=== PATIENT | female | born 1990 | race Caucasian/White ===

== ENCOUNTER → 2018-11-27 13:37 | Outpatient (CLI) | payer OTHER, SELFPAY ==
[2016-09-23 02:01] VITALS: BMI 29.3
[2018-11-27 20:26] LABS: Chlamydia Trachomatis by PCR Negative (Negative); Neisserai gonorrhoeae by PCR Negative (Negative); Probe Check PASS; Sample Adequacy Control PASS; Specimen Processing Control PASS
[2018-12-04 08:22] LABS: HPV Reflexed? NOT INDICATED
== END ==
PROVIDERS: Family Provider Family Medicine; PCP Family Medicine; Visit Provider Obstetrics & Gynecology
DX: Z32.01 Encounter for pregnancy test, result positive (principal)
CPT/HCPCS: 87491; 87591; 87624; 88175; G0145

== ENCOUNTER → 2018-12-25 16:34 | Outpatient (CLI) | payer OTHER, SELFPAY ==
[2016-09-23 02:01] VITALS: BMI 29.3
[2018-12-25 17:15] LABS: Absolute Lymphocyte Count 1.35 X10^3/uL (0.83-4.51); Absolute Neutrophil Count 6.3 X10^3/uL (2.0-7.7); Basophil# 0.02 X10^3/uL; Basophil% 0.2 % (0-1); Eosinophil# 0.05 X10^3/uL; Eosinophils% 0.6 % (0-5); Hematocrit 37.9 % (37-47); Hemoglobin 13.1 g/dL (12.0-15.0); Lymphocyte # 1.35 X10^3/ul (4.0); Lymphocyte % 16.4 % (19-41); Mean Corp Hgb Conc 34.6 g/dL (32-36); Mean Corpuscular Hgb 30.8 pg (27.0-32.0); Mean Corpuscular Volume 89.2 fL (81-99); Mean Platelet Vol. 10.5 fl (6.2-12.0); Monocyte# 0.47 X10^3/uL; Monocyte% 5.7 % (0-10); NRBC Flagged by Analyzer 0 % (0-5); Neutrophil # 6.29 X10^3/uL (2.7-7.7); Neutrophil % 76.7 % (47-70); Platelet Count 167 K/mm3 (150-450); RBC Distribution Width CV 12.5 % (11.6-14.6); RBC Distribution Width SD 40.7 fl (35.1-43.9); Red Blood Count 4.25 M/mm3 (4.2-5.4); White Blood Count 8.2 K/mm3 (4.4-11.0)
[2018-12-25 17:33] LABS: Color, Urine Yellow (Yellow); Glucose, Dipstick Normal (Normal); Ketone-Dipstick 5 mg/dl (Negative); Leukocyte Esterase-Dipstick 500 /ul (Negative); Nitrite-Dipstick Negative (Negative); Occult Blood-Urine 25 /ul (Negative); Protein-Dipstick 15 mg/dl (Negative); Urine Bilirubin Dipstick Negative (Negative); Urine Clarity Turbid (Clear); Urine Urobilinogen Normal (Normal)
[2018-12-25 17:56] LABS: Amphetamine Urine VISTA NEGATIVE (<1000 ng/mL); Barbiturate Urine VISTA NEGATIVE (< 200 ng/mL); Benzodiazepine Urine VISTA NEGATIVE (< 200 ng/mL); Cocaine Urine VISTA NEGATIVE (< 300 ng/mL); Ecstacy Urine VISTA NEGATIVE (< 500 ng/mL); Methadone Urine VISTA NEGATIVE (< 300 ng/mL); PCP Urine VISTA NEGATIVE (< 25 ng/mL); THC Urine VISTA NEGATIVE (< 50 ng/mL); Vista UDS pH Range 6
[2018-12-25 18:17] LABS: Thyroid Stim Hormone (TSH) 1.71 uIU/mL (0.358-3.74)
[2018-12-26 00:54] LABS: Prenatal RPR NONREACTIVE (NONREACTIVE)
[2018-12-26 09:18] LABS: HIV - WCH Non-Reactive (Nonreactive); Hepatitis B Surface Antigen Non-Reactive (Nonreactive); Hepatitis C Antibody Non-Reactive (Nonreactive); Rubella IgG 75.7 IU/mL; Vitamin D,25 Hydroxy 29.5 ng/mL (29.95-100.01)
== END ==
PROVIDERS: Visit Provider Obstetrics & Gynecology
DX: Z34.81 Encounter for supervision of other normal pregnancy, first trimester (principal)
CPT/HCPCS: 36415; 80307; 81002; 82306; 84443; 85025; 86703; 86762; 86803; 87340

== ENCOUNTER → 2019-04-15 15:37 | Outpatient (CLI) | payer OTHER, SELFPAY ==
[2016-09-23 02:01] VITALS: BMI 29.3
[2019-04-15 17:38] LABS: Hematocrit 31.8 % (37-47); Hemoglobin 10.9 g/dL (12.0-15.0); Mean Corp Hgb Conc 34.3 g/dL (32-36); Mean Corpuscular Hgb 31.4 pg (27.0-32.0); Mean Corpuscular Volume 91.6 fL (81-99); Mean Platelet Vol. 11.5 fl (6.2-12.0); Platelet Count 145 K/mm3 (150-450); RBC Distribution Width CV 13.3 % (11.6-14.6); RBC Distribution Width SD 43.7 fl (35.1-43.9); Red Blood Count 3.47 M/mm3 (4.2-5.4)
[2019-04-15 17:58] LABS: Glucose Challenge Gest 1H 50g 84 mg/dL (70-140)
[2019-04-15 18:05] LABS: Vitamin D,25 Hydroxy 34.7 ng/mL (29.95-100.01)
[2019-04-16 23:49] LABS: Ferritin 6 ng/mL (8-252)
== END ==
PROVIDERS: Visit Provider Obstetrics & Gynecology
DX: O99.282 Endocrine, nutritional and metabolic diseases complicating pregnancy, second trimester (principal); E55.9 Vitamin D deficiency, unspecified; Z3A.00 Weeks of gestation of pregnancy not specified
CPT/HCPCS: 36415; 82306; 82728; 82950; 85027

== ENCOUNTER → 2019-06-10 15:41 | Outpatient (CLI) | payer OTHER, SELFPAY ==
[2016-09-23 02:01] VITALS: BMI 29.3
[2019-06-10 17:13] LABS: Hematocrit 35.7 % (37-47); Hemoglobin 12.3 g/dL (12.0-15.0); Mean Corp Hgb Conc 34.5 g/dL (32-36); Mean Corpuscular Hgb 31.3 pg (27.0-32.0); Mean Corpuscular Volume 90.8 fL (81-99); Mean Platelet Vol. 11.3 fl (6.2-12.0); Platelet Count 138 K/mm3 (150-450); RBC Distribution Width CV 13.7 % (11.6-14.6); RBC Distribution Width SD 45.6 fl (35.1-43.9); Red Blood Count 3.93 M/mm3 (4.2-5.4)
[2019-06-10 17:24] LABS: AST(SGOT) 12 U/L (15-37); Alanine Aminotransfer ALT/SGPT 14 U/L (13-56); Albumin, Serum 2.7 g/dL (3.2-5.0); Alkaline Phosphatase 102 U/L (45-117); Bilirubin, Direct 0.07 mg/dL (0.00-0.30); Protein, Total 6.7 g/dL (6.4-8.2)
== END ==
PROVIDERS: Visit Provider Obstetrics & Gynecology
DX: Z34.83 Encounter for supervision of other normal pregnancy, third trimester (principal); D69.6 Thrombocytopenia, unspecified; L29.9 Pruritus, unspecified
CPT/HCPCS: 36415; 80076; 85027

== ENCOUNTER → 2019-06-17 | Outpatient (CLI) | payer OTHER, SELFPAY | END | disposition home or self-care (01) | PROVIDERS: PCP Family Medicine; Visit Provider Obstetrics & Gynecology | DX: Z36.85 Encounter for antenatal screening for Streptococcus B (principal) | CPT/HCPCS: 87081 ==

== ENCOUNTER 2019-07-03 00:45 | Inpatient (IN) | payer OTHER, SELFPAY ==
[2016-09-23 02:01] VITALS: BMI 29.3
[2019-07-03] VITALS (41 sets, daily range): BP systolic 101–143; BP diastolic 61–87; PULSE 66–130; RESP 16; TEMP 36.7–37.3; O2SAT 92–100; BMI 28.0
[2019-07-03] MEDS: 0.9% Saline Lock 10 ML Syringe IV ×2 (01:10→19:33)
[2019-07-03 01:28] LABS: Absolute Lymphocyte Count 1.29 X10^3/uL (0.83-4.51); Basophil# 0.02 X10^3/uL; Basophil% 0.3 % (0-1); Eosinophil# 0.05 X10^3/uL; Eosinophils% 0.6 % (0-5); Hematocrit 36.4 % (37-47); Hemoglobin 12.4 g/dL (12.0-15.0); Lymphocyte # 1.29 X10^3/ul (4.0); Lymphocyte % 16.3 % (19-41); Mean Corp Hgb Conc 34.1 g/dL (32-36); Mean Platelet Vol. 11.6 fl (6.2-12.0); Monocyte# 0.57 X10^3/uL; Monocyte% 7.2 % (0-10); NRBC Flagged by Analyzer 0 % (0-5); Neutrophil # 5.98 X10^3/uL (2.7-7.7); Neutrophil % 75.3 % (47-70); Platelet Count 135 K/mm3 (150-450); RBC Distribution Width CV 13.6 % (11.6-14.6); RBC Distribution Width SD 44.6 fl (35.1-43.9); White Blood Count 7.9 K/mm3 (4.4-11.0)
--- NOTE | 2019-07-03 08:05 | PCM.HP.BLA ---
History and Physical Date of Admission: 07/03/19 [facility] [place] ANTEPARTUM RECORD - HISTORY AND PHYSICAL (07/03/2019) Name: MARGARITA HUGO History of This : This is a 29-year-old 2 para 1 who presents with spontaneous rupture of membranes at home. care has been remarkable for low vitamin D, scoliosis, thrombocytopenia. OB Physician: LOR 's Physician: Charly Colbert MD ...................................................................... : 1990 Age: 29 Address: [place] [address] Phone: ([phone] Insurance Carrier: [facility] [id number] Emergency Contact: LUC HUGO [phone] ...................................................................... Final DANILO: 07/11/19 By Ultrasound: 9 weeks 1 day PARITY: (G-Total Pregnancies P-Fullterm,Premature,Induced AB,Spont AB, Ectopics, Multiple,Living) DANILO CONFIRMATION: By LMP: 10/04/18 Initial Exam: 07/11/19 By First Ultrasound Exam: 07/11/19 Final DANILO: 07/11/19 OB PROBLEM LIST: ALLERGIC TO LATEX AND INJECTABLE CORTISONE. 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 Drug Use - denies use of street drugs Sexual Activity - Residence - owns a home Place of - [place], [place] Spouse-Sig Other Name - [employer]ms Hugo Spouse-Sig Other Occupation - [employer]- maintenance and operations supervisor Spouse-Sig Other Phone No - [phone] Children Name(s) - Darren '17 PRIOR DELIVERY HISTORY DEL DATE GEST LAB WT LB WT OZ TYPE ANES LABOR TX 28 September 12 40 30 8 7 Vag/V Epidural No ANTEPARTUM FLOW CHART VISIT GE RTC FU F F WI U U DATE WK MD WKS HT PN HR M SS BP ED WT WI GL D EF ST __ ____ ___ __ __ ___ __ __ __ ___ __ __ __ ___ __ 03 Jun 38 SHM 1 37 V + + 110/74 0 188 tr - May 37 SHM 1 36 V + + 108/70 1+ 188 tr - May 36 SHM 1 36 V + + 110/70 sl 185 tr ne May 35 SHM 2 34 V + + 100/64 0 184 tr - Apr KW 2 32 + + 116/66 0 182 ne ne May 28 SHM 2 30 ? + + 110/62 sl 179 tr - Apr 24 SHM 2 27 ? + 110/68 0 177 - - Mar 21 SHM 4 23 + + 108/76 0 170 tr - Feb 14 SHM 4 20 + + 116/78 - 164 - - Jan 11 SHM 4 + ? 112/72 0 160 tr - Dec 07 SHM 4 on O 118/72 0 158 - - ANTEPARTUM NOTE(S): Jun 30 2019: Jun 23 2020: see note Jun 17 2019: gbs today. LARC signed Jun 10 2019: doing well May 27 2019: Feeling well May 08 2020: see note Apr 15 2019: none Mar 17 2019: doing well, glucola inst provided and reviewed Feb 16 2019: doing well, comp u/s today Jan 19 2019: see prog note, declines AFP Dec 25 2018: US and NOB today COMPREHENSIVE ANTEPARTUM NOTE(S): Jun 30 2019: Margarita is here, concerned with decreased FM. NST Cat 1, BPP done. Score 8 out of 10. Reviewed FM, Kick count sheet given. Call if any concerns. Reviewed trial of protien, cold liquid, and change of position and if not feeling mvmt to call. LMT Jun 30 2019: NST Cat I, nonreactive - BPP 8/10 (-2 for NST), reviewed kick counts. Jun 26 2019: H taken to OB. tkg Jun 23 2019: Margarita is here for a PNV. She is 37 weeks and 3 days. She is doing good. Sl edema in feet. Good FM. Offered cervical check, accepted. Urine tr -. MK Jun 22 2019: GBS negative. - CH Jun 10 2019: Had Tdap. Bilateral vulvar varicosities now. Reviewed FM, SROM, and labor. GBS at next visit. LMT Jun 10 2019: Likely gestational thrombocytopenia, rpt plt today. Reviewed indications. c/o itching abdomen, legs, hands. LFTs, bile acids today. May 27 2019: Vulvar varicosity bothersome, worse sometimes more than others. States Dr. Slava Guzman examined this last visit; she does not feel the need to have this looked at today. Good FM. Anterior placenta. kbm May 27 2019: Feeling well; reports active FM; denies UCs, VB, LOF; discussed midwifery goals and philosophy of care with physician backup, if Dr. PONCE is not food and nutrition services supervisor when labor start, she is comfortale with CNM care, also for PN care; discussed warning signs, s/s Labor, when to call/come in; RTO 2 weeks for PNV - KVW May 08 2019: Margarita is here for visit. She is doing well. She relates that she has noticed increased swelling on R labia and concerned about this and would like to have this looked at today. She has occ discomfort in abdomen that she feels is like electricity. It resolves quickly and advised ok to observe unless progressive. Seeing Chiropractor for back discomfort which is better with twice monthly visits. Fe upsets stomach a little bit. She feels better if she eats a cracker or something right after taking it. May try ferrous gluconate if worsens. FM and discomforts reviewed. LMT May 08 2019: dynamic vulvar varicosity present, supportive measures Apr 15 2019: Margarita is here for OB visit. She is feeling well with no swelling. Good movement. Said she is a little uncomfortable at night when trying to sleep, tried pillow and said t did not help much. She is having a baby boy. Urine came back as --. Blood draw at 3:51 pm. MLK Apr 15 2019: PTL, ROM, FM precautions. Discussed PPBC, considering Paragard IUD. Mar 17 2019: Margarita is here today for her visit. Patient states that she has been doing well. SHe does have some concerns regarding FM she states that she doesn't feel baby as much as she did with her first . Reviewed with patient anterior placenta and movements. Patient verbalized understanding and will follow up as needed. Glucola due at next visit. Instructions provided and reviewed with patient. jlb Mar 17 2019: discussed labor analgesia, epidural planned. Feb 18 2019: Entry for 02/16/19: Anatomy scan wnl, Placenta ANTERIOR. Ok for . Discussed sleep positioning, discomforts of Jan 19 2019: Margarita is here today for her visit. Patient states that she continues with mild nausea she notes that sx are worse if she doesn't take Unisom with vitamin B6 so continues with that advised patient that is ok, patient states that she has increased headaches in and taking Tylenol regularly and not sure if that is ok. Patient states that she has a single cup of coffee daily. Reviewed with patient to try to take Tylenol with her coffee and add in half tab of benadryl in am for headaches to see if that helps advised that benadryl might make her tired so reinforced starting with just a half tab increasing if needed. Patient states that she has no seasonal allergies in the past advised she could try Claritin or zyrtec if needed and see too if that would help with headaches. Patient agreeable. jlb Dec 25 2018: Margarita is here for her NOB visit at 11 w 5 d, she is a with an DANILO of 07/11/2019. She and her , Luc, have a little girl born by vac assisted vaginal delivery in 2017. Past history updated. Delivery at [facility] with an epidural is planned, and she will breastfeed. Margarita nursed her daughter for one year. Office practice patterns, including labs being collected today reviewed. Emergencies/danger signs to report, round ligament pain, reporting s/s of a UTI, and common OTC medications approved/not approved for use during reviewed. She is a life long non-smoker, and denies use of drugs or ETOH. She takes an OTC gummy vitamin that contains DHA and she tolerates this well. Genetics Screening form completed, she has an uncle who was born with one digit on his right hand. She declines msAFP and CF testing; consent signed as such. EPDS = 1. She states that they are in the process of selling their house, so her stress levels are a little higher at this time. She reports that she was recently diagnosed with ADHD, and has some anxiety. Margarita states that she has been experiencing daily nausea with , but has no vomited. She spoke with Dr. Slava Guzman about this today, and she discussed measures that may help minimize nausea, including small frequent meals with protein included throughout the day, adequate water hydration of at least one gallon per 24 hours, Unisom at bedtime and Vitamin B6 50 mg twice a day, as well as motion sickness bracelets. She plans to try all of these measures. Margarita takes daily walks with her daughter and their dogs. Reviewed lifting restrictions. Kegel exercises reviewed. Water and dietary needs reinforced, including caloric needs, recommended weight gain, limiting empty calories, and limiting caffeien to one cup a day. Printed guide for food safety provided with review. Margarita states that she understands all information provided during NOB visit, and has no questions following same. To [facility] draw station. AW New Nov 27 2018: Margarita is here today for missed menses appointment. Patient is a . Positive upt in office today. Patient states that lmp is 10/04/2018 making her 7-8 wks with Danilo of 06/2019. Patient states that she has mild nausea, breast tenderness, and fatigue. She has been able to manage nausea with mints and ranjith lozenges at this time will try vitamin B6 with Unisom and call office if sx worsen and needs a script. Patient denies any bleeding or spotting since lmp. She staets that she has h/o normal pap's with most recent pap in 2016. Pap and cultures due at today's visit. Educational materials provided and reviewed with patient's. jlsandra Nov 27 2018: as above. m REVIEW OF SYSTEMS: GENERAL - Denies fever, or chills SKIN - Denies rash, new skin lesions, or change in moles EYES - Denies blurred vision, or change in visual acuity EARS - Denies ear pain, or difficulty hearing NOSE - Denies nasal congestion, discharge, or bleeding MOUTH - Denies sore throat, or difficulty swallowing NECK - Denies pain or swelling RESPIRATORY - Denies shortness of breath, cough, wheezing CARDIOVASCULAR - Denies palpitations, chest pain, orthopnea, PND, peripheral edema, syncope or claudication GASTROINTESTINAL - Denies nausea, vomiting, diarrhea, constipation, Denies abdominal pain, melena and or bright red blood GENITOURINARY - Denies dysuria, frequency of urination, urgency, or hesitancy MUSCULOSKELETAL - Denies joint or muscle pain, or back pain NEUROLOGICAL - Denies localized numbness, weakness, or tingling PSYCHIATRIC - Denies depression, anxiety, substance abuse or suicide attempts ENDOCRINE - Denies heat or cold intolerance, weight loss or gain, increasing thirst HEMATO-IMMUNOLOGIC - Denies easy bruising, bleeding, oral ulcerations or recurrent infections GENETICS SCREENING: Age 35+ years: No Thalassemia: No Neural Tube Defect: No Down Syndrome: No MERCEDES-SACHS: No Sickle Cell Disease: No Hemophilia: No Musc. Dystrophy: No Cystic Fibrosis: No-declines screening Catron Chorea: No Mental Retardation: No Fragile X: No Other genetic: No Other defects: No SABs/still births: No Drugs since LMP: No INFECTION HISTORY: High risk AIDS: No High risk Hepatitis: No Exposed to TB: No Exposed to Herpes: No Rash/viral illness since LMP: No History of STD: No MENSTRUAL HISTORY: *Menses Amount/Duration: 4-5 daysMenses Regularity: regularFrequency: monthlyMenarche (Age Onset): 14* PAST SUMMARY: PARITY: 1. Total Pregnancies............ 2 2. Full Term Pregnancies........ 1 3. Premature.................... 0 4. Abortions - Induced.......... 0 5. Abortions - Spontaneous...... 0 6. Ectopics..................... 0 7. Multiple Births.............. 0 8. Living Children.............. 1 PAST #1: Date of :.................. 09/23/16 Gestation Weeks:................ 40 Length of labor(hours):......... 30 Sex:............................ F Weight-lbs:............... 8 Weight-oz:................ 7 Type of Delivery:............... Vag/Vac Type of Anesthesia:............. Epidural Place of Delivery:.............. [facility] Treatment of Labor?:.... No Comment: SROM, 5 HR 2ND STAGE PHYSICAL EXAMINATION General Appearence: 29 yo female in no acute distress Vital Signs: AF, VSS Heart: RRR without rubs or gallops Lungs: CTA x 2 Breasts: deferred Abdomen: gravid Pelvis: Cervix: 2/50% effaced Presentation: cephalic Station: -2 Fetus: Size: AGA Movement: present Heart: present Labs for : MARGARITA HUGO since 10/14/2018 ORDER DATEIN DESCRIPTION VALUE UNITS RANGE A+ COMMENT CULTURE, GROUP B STREPTOCOCCUS 06/17/19 NOTE Original Ordering Provider: Paxton Piper Comments: VAGINAL/RECTAL YIFAN Culture Group B Beta Streptococcus is not isolated. Reviewed by HERACLIO MISCELLANEOUS LAB PROCEDURE 06/10/19 NOTE Original Ordering Provider: Paxton Piper [facility] [place] TEST TEST RESULT LIMITS Bile Acids, Fractionated LCMS Ursodeoxycholic Acids <0.10 umol/L Reference Range: All Ages: <1.9 Cholic Acids 0.70 umol/L Reference Range: All Ages: <2.2 Chenodeoxycholic Acids 1.2 umol/L Reference Range: All Ages: <5.8 Deoxycholic Acids 0.40 umol/L Reference Range: All Ages: <3.3 Total Bile Acids 2.3 umol/L Reference Range: All Ages: <9.2 TESTING PERFORMED AT [facility]. ORIGINAL REPORT ON FILE IN LAB CONTAINS ADDITIONAL TEST SITE INFORMATION. Reviewed by PAXTON LIVER PROFILE 06/10/19 NOTE Original Ordering Provider: Paxton Piper T PROT 6.7 g/dL 6.4-8.2 ALB 2.7 g/dL 3.2-5.0 L GLOB 4.0 g/dL 2.2-4.2 AST 12 U/L 15-37 L ALK P 102 U/L 45-117 ALT 14 U/L 13-56 T BILI 0.30 mg/dL 0.20-1.00 D BILI 0.07 mg/dL 0.00-0.30 Reviewed by PAXTON CBC-COMPLETE BLOOD CNT NO DIFF 06/10/19 NOTE Original Ordering Provider: Paxton Piper WBC 9.0 K/mm3 4.4-11.0 RBC 3.93 M/mm3 4.2-5.4 L HGB 12.3 g/dL 12.0-15.0 HCT 35.7 % 37-47 L MCV 90.8 fL 81-99 MCH 31.3 pg 27.0-32.0 MCHC 34.5 g/dL 32-36 RDW CV 13.7 % 11.6-14.6 RDW SD 45.6 fl 35.1-43.9 H PLT 138 K/mm3 150-450 L MPV 11.3 fl 6.2-12.0 Reviewed by PAXTON FERRITIN 04/15/19 NOTE Original Ordering Provider: Paxton Piper FERRITIN 6 ng/mL 8-252 L Reviewed by PAXTON GLUCOSE CHALLENGE GEST 1H 50G 04/15/19 NOTE Original Ordering Provider: Paxton Piper GLU GEST 50G 1H 84 mg/dL 70-140 Reviewed by PAXTON VITAMIN Benitez,25 HYDROXY 04/15/19 NOTE Original Ordering Provider: Paxton Piper VITAMIN D 25-OH 34.7 ng/mL 29.95-100.01 Vitamin D 25(OH) Status Range Deficiency <20 ng/mL (50nmol/L) Insufficiency 20 - 30 ng/mL (50 - 75 nmol/L) Sufficiency 30 - 100 ng/mL (75 - 250 nmol/L) Toxicity >100 ng/mL (>250 nmol/L) Reviewed by PAXTON Reviewed by PAXTON CBC-COMPLETE BLOOD CNT NO DIFF 04/15/19 NOTE Original Ordering Provider: Paxton Piper WBC 8.0 K/mm3 4.4-11.0 RBC 3.47 M/mm3 4.2-5.4 L HGB 10.9 g/dL 12.0-15.0 L HCT 31.8 % 37-47 L MCV 91.6 fL 81-99 MCH 31.4 pg 27.0-32.0 MCHC 34.3 g/dL 32-36 RDW CV 13.3 % 11.6-14.6 RDW SD 43.7 fl 35.1-43.9 PLT 145 K/mm3 150-450 L MPV 11.5 fl 6.2-12.0 Reviewed by PAXTON HEPATITIS C ANTIBODY 12/25/18 NOTE Original Ordering Provider: Paxton Piper HEPATITIS C AB Non-Reactive Nonreactive Non Reactive: < 0.8 Equivocal: >/= 0.8 to < 1.0 Reactive: >/= 1.0 The CDC recommends that a reactive/equivocal HCV antibody result be followed up by the HCV Nucleic Acid Amplification test (713687) Reviewed by PAXTON HEPATITIS B SURFACE ANTIGEN 12/25/18 NOTE Original Ordering Provider: Paxton Piper HEPB SURFACE AG Non-Reactive Nonreactive Reviewed by PAXTON HIV - [facility] 12/25/18 NOTE Original Ordering Provider: Paxton Piper HIV - [facility] Non-Reactive Nonreactive Reviewed by PAXTON RUBELLA IGG 12/25/18 NOTE Original Ordering Provider: Paxton Piper RUBELLA IGG 75.7 IU/mL Antibody results Interpretation of Immune Status < 5 IU/ml Presumed Non-immune 5 - < 10 IU/ml Equivocal > or = 10 IU/ml Presumed Immune Reviewed by PAXTON VITAMIN Benitez25 HYDROXY 12/25/18 NOTE Original Ordering Provider: Paxton Piper VITAMIN D 25-OH 29.5 ng/mL 29.95-100.01 L Vitamin D 25(OH) Status Range Deficiency <20 ng/mL (50nmol/L) Insufficiency 20 - 30 ng/mL (50 - 75 nmol/L) Sufficiency 30 - 100 ng/mL (75 - 250 nmol/L) Toxicity >100 ng/mL (>250 nmol/L) Reviewed by PAXTON RPR 12/25/18 NOTE Original Ordering Provider: Paxton Piper RPR NONREACTIVE NONREACTIVE Reviewed by PAXTON THYROID STIM HORMONE (TSH) 12/25/18 NOTE Original Ordering Provider: Paxton Piper TSH 1.71 uIU/mL 0.358-3.74 Reviewed by PAXTON T AND S-NO CHARGE W/PNP 12/25/18 Reason for Type AND Screen/Red Cells: Surgery? [facility]~[address] [place], [address]~ BLOOD TYPE GEL O POSITIVE N AB SCREEN GEL NEGATIVE N Reviewed by PAXTON URINE DRUG SCREEN (VISTA) 12/25/18 NOTE Original Ordering Provider: Paxton Piper TO BE CONFIRMED CONFIRMATORY TESTING FOR ALL POSITIVE URINE DRUG SCREEN RESULTS WILL ONLY BE SENT OUT UPON PHYSICIAN ORDER. VISTA Urine Drug Screen methods provide only preliminary analytical test results. A more specific alternate chemical method must be used in order to obtain a confirmed analytical result. Gas chromatography/mass spectrometery (GC/MS) is the preferred confirmatory method. Clinical consideration and professional judgement should be applied to any drug of abuse test result, particularly when preliminary positive results are used. URINE TCA TESTING MUST BE ORDERED SEPARATELY. USE TEST MNEMONIC: [facility] UDS PH 6 AMPHETAMINES NEGATIVE <1000 ng/mL BARBITIURATES NEGATIVE < 200 ng/mL BENZODIAZIPINE NEGATIVE < 200 ng/mL COCAINE NEGATIVE < 300 ng/mL ECSTACY NEGATIVE < 500 ng/mL METHADONE NEGATIVE < 300 ng/mL OPIATES NEGATIVE < 300 ng/mL PCP NEGATIVE < 25 ng/mL THC NEGATIVE < 50 ng/mL Reviewed by PAXTON URINALYSIS, ROUTINE (DIPSTICK) 12/25/18 NOTE Original Ordering Provider: Paxton Piper COLOR Yellow Yellow CLARITY Turbid Clear GLUCOSE, UR Normal mg/dl Normal BILIRUBIN URINE Negative mg/dL Negative KETONE UR 5 mg/dl Negative H SP.GR. DIPSTX 1.030 1.002-1.030 PH UR 5.0 5.0 - 8.0 PROT DIPSTX 15 mg/dl Negative H UROBILI Normal mg/dl Normal NITRITE UR Negative Negative OCCULT BLOOD-UR 25 /ul Negative H LEUK ESTERASE 500 /ul Negative H Reviewed by PAXTON CBC W/DIFF, AUTOMATED 12/25/18 NOTE Original Ordering Provider: Paxton Piper WBC 8.2 K/mm3 4.4-11.0 RBC 4.25 M/mm3 4.2-5.4 HGB 13.1 g/dL 12.0-15.0 HCT 37.9 % 37-47 MCV 89.2 fL 81-99 MCH 30.8 pg 27.0-32.0 MCHC 34.6 g/dL 32-36 RDW CV 12.5 % 11.6-14.6 RDW SD 40.7 fl 35.1-43.9 PLT 167 K/mm3 150-450 MPV 10.5 fl 6.2-12.0 NEUT% 76.7 % 47-70 H LY% 16.4 % 19-41 L MONO% 5.7 % 0-10 EO% 0.6 % 0-5 BASO% 0.2 % 0-1 IM GRAN % 0.400 % 0.0-0.9 IG% - Immature Granulocytes (promyelocytes, myelocytes and metamyelocytes) > 1% indicates that a LEFT SHIFT is Present. ABSOLUTE NEUT 6.3 X10 3/uL 2.0-7.7 ABSOLUTE LYMPH 1.35 X10 3/uL 0.83-4.51 NRBC, FLAGGED 0 % 0-5 Reviewed by PAXTON PAP I-G W/RFX HRHPV-APTIMA 11/27/18 NOTE Original Ordering Provider: Paxton Piper DIAGN . NEGATIVE FOR INTRAEPITHELIAL LESION OR MALIGNANCY. FUNGAL ORGANISMS MORPHOLOGICALLY CONSISTENT WITH TIANA SPECIES ARE PRESENT. THIS SPECIMEN WAS RESCREENED PART OF OUR MARKETING PROGRAM MANAGER PROGRAM. ADEQ . Satisfactory for evaluation. Endocervical and/or squamous metaplastic cells (endocervical component) are present. PERFORM . Nancy Cochran, Budget Assistant (ASCP) QC REV . Nereida Pa, Supervisory Budget Assistant (ASCP) TEST METHOD . This liquid based ThinPrep(R) pap test was screened with the use of an image guided system. COMM . . PAPSMR . The Pap smear is a screening test designed to aid in the detection of premalignant and malignant conditions of the uterine cervix. It is not a diagnostic procedure and should not be used as the sole means of detecting cervical cancer. Both false-positive and false-negative reports do occur. HPV RFLX . The HPV DNA reflex criteria were not met with this specimen result therefore, no HPV testing was performed. Performed at: - [address] [id number] [employer] Jobs Trainer: Marii Bautista MD, Phone: [phone] Reviewed by PAXTON CT/SCARLETT [facility] BY PCR 11/27/18 NOTE Original Ordering Provider: Paxton MARSH PCR Negative Negative [facility] BY PCR Negative Negative Reviewed by PAXTON Impression /Plan: 38+ week intrauterine in early labor with spontaneous rupture membranes. Preparations in progress for delivery.
[2019-07-03] MEDS: Lactated Ringers 1,000 ML 50 ML IV (09:07)
[2019-07-03] MEDS: Oxytocin 30 units/NS 500 ml 30 UNITS/500 ML IV.SOLN IV (09:16)
[2019-07-03] MEDS: Lactated Ringers 500 ML 999 ML IV (12:26)
[2019-07-03] MEDS: fentaNYL-bupivacaine (epidural) 100 ML BAG EPIDURAL (13:17)
[2019-07-03] MEDS: Acetaminophen 325 MG Tablet PO (14:36)
[2019-07-03] MEDS: Oxytocin 30 units/NS 500 ml 30 UNITS/500 ML IV.SOLN 334 UNITS IV (16:39)
--- NOTE | 2019-07-03 17:12 | PCM.OPRPT ---
Problem List (1) 38 weeks gestation of Status: Acute Vaginal Delivery Maternal Presentation: Spontaneous Rupture of Membranes Method of Induction: - - pitocin augmentation Amniotic Membrane Rupture Type: Spontaneous at home Rupture of Membrane time: 2240 on 07/02/19 Amniotic Fluid Description: Clear Final DANILO Source: US <20 weeks Date of Procedure: 07/03/19 Surgery/ Procedure Performed: Spontaneous Vaginal Delivery Anesthesiologist: Josephine Mederos Type of Anesthesia: Epidural Description of Procedure: Patient was FD/+4 station on my arrival. Pushed to deliver a vigorous male in CYNDIE over an intact perineum. The was placed on the maternal abdomen and further attended by nursery personnel. The cord was doubly clamped and cut after 2 minutes of infant life. The placenta delivererd spontaneously and appeared intact on inspection. No lacerations present. Excellent hemostasis. Sponge counts correct. Presentation: Vertex Placental Delivery Description: Spontaneous Placenta Disposition: [facility] Cord Vessel Description: 3 Vessels Nuchal Cord Compression: Without compression Cord Entanglement: Around neck x 1, loose Drain: Tang to straight drain Estimated Blood Loss: 100 ml A gender: Male (1 minute): 8 (5 minute): 9 Episiotomy Description: None Laceration: None Medications given after delivery: IV Pitocin Complications: None
[2019-07-03] MEDS: Ibuprofen 600 MG Tablet PO (22:46)
[2019-07-04] VITALS: BP 99/62; PULSE 68; RESP 16; TEMP 37.3
[2019-07-04 04:00] VITALS: BP 100/67; PULSE 70; RESP 16; TEMP 37.2
[2019-07-04 08:20] VITALS: BP 127/82; PULSE 81; RESP 18; TEMP 37
--- NOTE | 2019-07-04 10:11 | PCM.PN.OB ---
Patient Problems: Active and Suspected Problems 38 weeks gestation of (Acute) Subjective: Patient without complaints. Minimal vaginal bleeding and breast-feeding going well. Wants to go home today if baby is able to go. - Physical Exam Vitals/I&O's: Vital Signs Temp Pulse Resp BP Pulse Ox 98.6 F 81 18 127/82 H 97 07/04/19 08:20 07/04/19 08:20 07/04/19 08:20 07/04/19 08:20 07/03/19 21:09 Oxygen Delivery Method Room Air Weight: 188 lb 7.924 oz Body Mass Index (BMI) 28.0 Intake and Output for Last 24 Hours 07/02/19 07/03/19 07/04/19 23:59 23:59 23:59 Intake Total 2892.37 / 2892.37 Output Total 1999 Balance 892.37 / 892.37 Current Medications Acetaminophen (Tylenol) 1,000 mg PO Q8H PRN PRN PRN Reason: Pain Score 1-3/10 Bisacodyl (Dulcolax) 10 mg RECTAL UD PRN PRN Reason: If no BM Dibucaine (Dibucaine) 1 applic TOPICAL TID PRN PRN; Protocol PRN Reason: Discomfort Hydrocortisone (Hytone) 1 applic TOPICAL TID PRN PRN; Protocol PRN Reason: Discomfort Ibuprofen (Motrin) 600 mg PO Q6H PRN PRN PRN Reason: Pain Score 1-3/10 Last Admin: 07/03/19 22:46 Dose: 600 mg Documented by: Methylergonovine Maleate (Methergine) 0.2 mg IM X1 PRN PRN Reason: Excess bleeding/uterine atony Ondansetron HCl (Zofran) 4 mg IV Q4H PRN PRN PRN Reason: Nausea Senna/Docusate Sodium (Senokot-S, Raysa-Colace) 1 - 2 tablet PO DAILY PRN PRN PRN Reason: Constipation Simethicone (Mylicon) 80 mg PO PCHS PRN PRN Reason: Indigestion/Stomach pain Sodium Chloride () 5 - 15 ml IV UD PRN PRN Reason: SALINE FLUSH Last Admin: 07/03/19 19:33 Dose: 10 ml Documented by: Medical Necessity - Tobacco Use Smoking Status: Never smoker Assessment/Plan All Active Problems 38 weeks gestation of (Acute) Vacuum extractor delivery, delivered (Acute) 40 weeks gestation of (Acute) Doing well day #1 status post routine spontaneous vaginal delivery. Will release to home with routine instructions.
--- NOTE | 2019-07-04 10:12 | DCINST_ITS ---
May resume sexual activity in: 4-6 weeks Additional Activity Instructions:: Nothing in the vagina for 4-6 weeks. You may return to work/school in 6 weeks. Call your doctor if you observe: Inability to urinate, Inability to have a bowel movement, Using more than one pad per hour Additional Instructions: If you experience any of the following, contact your healthcare provider. * Bleeding that soaks a pad every hour for 2 hours * Fever 100.4 or higher * Unrelieved incision or abdominal pain * Swelling, redness, discharge or bleeding from your incision or episiotomy site * Your incision begins to separate * Problems urinating (including inability to urinate or burning while urinating). * Visual changes * Severe headache * Flu-like symptoms * Pain or redness in one of both of your breasts * Pain, warmth, tenderness or swelling in your legs, especially the calf area * Frequent nausea and vomiting * Symptoms of depression or anxiety If you experience any of the following, call 911 or go to the nearest Emergency Room. * Chest pain * Problems breathing * Seizure activity * Partial or complete paralysis of a body part, slurred speech, weakness or drooping of the face, or a sudden inability to walk or hold your balance Allergies/Adverse Reactions: Allergies cortisone Allergy (Verified 07/03/19 01:01) Rash latex Allergy (Verified 07/03/19 01:01) Rash Medications to take at Discharge Vit No.130/Iron/Folic [ Vitamins] 1 each PO DAILY 09/23/16 Cholecalciferol (Vitamin D3) [Vitamin D3] 2,000 unit PO DAILY 07/03/19 Ferrous Sulfate 325 mg PO DAILY 07/03/19 Please Follow Up With: Ambar Piper MD - [phone] When: Call to make an appointment with your doctor in 2 and 6 weeks. Primary Care Physician: Delores Colbert PA-C [Primary Care Provider] - Test Results: Test results from this visit will be discussed in further detail at your follow- up appointment, if applicable.
--- NOTE | 2019-07-04 10:12 | PCM.DCVAG ---
May resume sexual activity in: 4-6 weeks Additional Activity Instructions:: Nothing in the vagina for 4-6 weeks. You may return to work/school in 6 weeks. Call your doctor if you observe: Inability to urinate, Inability to have a bowel movement, Using more than one pad per hour Additional Instructions: If you experience any of the following, contact your healthcare provider. Bleeding that soaks a pad every hour for 2 hours Fever 100.4 or higher Unrelieved incision or abdominal pain Swelling, redness, discharge or bleeding from your incision or episiotomy site Your incision begins to separate Problems urinating (including inability to urinate or burning while urinating). Visual changes Severe headache Flu-like symptoms Pain or redness in one of both of your breasts Pain, warmth, tenderness or swelling in your legs, especially the calf area Frequent nausea and vomiting Symptoms of depression or anxiety If you experience any of the following, call 911 or go to the nearest Emergency Room. Chest pain Problems breathing Seizure activity Partial or complete paralysis of a body part, slurred speech, weakness or drooping of the face, or a sudden inability to walk or hold your balance Allergies/Adverse Reactions: Allergies cortisone Allergy (Verified 07/03/19 01:01) Rash latex Allergy (Verified 07/03/19 01:01) Rash Medications to take at Discharge Vit No.130/Iron/Folic [ Vitamins] 1 each PO DAILY 09/23/16 Cholecalciferol (Vitamin D3) [Vitamin D3] 2,000 unit PO DAILY 07/03/19 Ferrous Sulfate 325 mg PO DAILY 07/03/19 Please Follow Up With: Ambar Piper MD - [phone] When: Call to make an appointment with your doctor in 2 and 6 weeks. Primary Care Physician: Delores Colbert PA-C [Primary Care Provider] - Test Results: Test results from this visit will be discussed in further detail at your follow-up appointment, if applicable.
[2019-07-04 13:00] VITALS: BP 120/79; PULSE 83; RESP 16; TEMP 37.2
[2019-07-04] MEDS: Ibuprofen 600 MG Tablet PO (13:34)
== END 2019-07-04 17:25 | disposition home or self-care (01) | DRG 807 ==
LOC: WPOUT 00:49 → WP 00:49
PROVIDERS: Obstetrics & Gynecology; Admitting Provider Obstetrics & Gynecology; PCP Family Medicine; Referring Provider Obstetrics & Gynecology; Visit Provider Obstetrics & Gynecology
DX: O42.92 Full-term premature rupture of membranes, unspecified as to length of time between rupture and onset of labor (principal); Z37.0 Single live birth; O69.81X0 Labor and delivery complicated by cord around neck, without compression, not applicable or unspecified; O99.284 Endocrine, nutritional and metabolic diseases complicating childbirth; E55.9 Vitamin D deficiency, unspecified; Z3A.38 38 weeks gestation of pregnancy
CPT/HCPCS: 59025; 59050; 85025; 86850; 86900; 86901; 99218; J7120; A4216; G0378

== ENCOUNTER → 2019-08-25 | Outpatient (CLI) | payer OTHER, SELFPAY ==
[2019-07-03 01:04] VITALS: BMI 28.0
[2019-08-25 15:57] LABS: Platelet Count 236 K/mm3 (150-450)
[2019-08-25 17:49] LABS: Chlamydia Trachomatis by PCR Negative (Negative); Neisserai gonorrhoeae by PCR Negative (Negative); Probe Check PASS; Sample Adequacy Control PASS; Specimen Processing Control PASS
== END | disposition home or self-care (01) ==
LOC: LABSPEC 15:04
PROVIDERS: PCP Family Medicine; Referring Provider Obstetrics & Gynecology; Visit Provider Obstetrics & Gynecology
DX: D69.6 Thrombocytopenia, unspecified (principal); Z11.3 Encounter for screening for infections with a predominantly sexual mode of transmission
CPT/HCPCS: 85049; 87491; 87591

== ENCOUNTER 2021-05-30 14:00 | Outpatient (CLI) | payer OTHER, SELFPAY ==
[2021-06-02 13:57] LABS: HPV APTIMA, High Risk Negative (Negative)
== END 2021-05-30 23:59 | disposition short-term general hospital (02) ==
LOC: LABSPEC 14:11
PROVIDERS: PCP Family Medicine; Visit Provider Obstetrics & Gynecology
DX: Z12.4 Encounter for screening for malignant neoplasm of cervix (principal)
CPT/HCPCS: 87624; 88175; G0145